=== PATIENT | female | born 1960 | race Caucasian/White ===

== ENCOUNTER → 2017-03-26 | Outpatient (CLI) | payer BC ==
--- NOTE | 2017-03-29 12:06 | MM ---
Reason for exam: screening (asymptomatic). Last mammogram was performed 1 year ago. Physical Findings: A clinical breast exam by your physician is recommended on an annual basis and results should be correlated with mammographic findings. MG Screening Mammo w CAD Bilateral CC and MLO view(s) were taken. Prior study comparison: March 18, 2016, bilateral MG screening mammo w CAD. The breast tissue is extremely dense which could obscure a lesion on mammography. Finding: There are typically benign vascular calcifications in the right breast. There is a chronic nodularity in the right breast. No significant changes in finding since March 18, 2016. ASSESSMENT: Benign, BI-RAD 2 RECOMMENDATION: Routine screening mammogram of both breasts in 1 year.
== END ==
LOC: RADMAMWWP 14:31
PROVIDERS: ATTEND Family Medicine
DX: Z12.31 Encounter for screening mammogram for malignant neoplasm of breast (principal)

== ENCOUNTER → 2017-09-17 | Outpatient (CLI) | payer BC ==
--- NOTE | 2017-09-17 09:32 | XR ---
EXAMINATION TYPE: XR lumbar spine 2 or 3V DATE OF EXAM: 09/17/2017 CLINICAL HISTORY: Low back pain for one month. TECHNIQUE: Frontal and lateral images of the lumbar spine are obtained. COMPARISON: None FINDINGS: There are 5 lumbar type vertebral bodies identified. The lumbar spine shows satisfactory alignment without evidence of acute fracture or dislocation. Vertebral body heights and disk space he ights are within normal limits. No significant spurring is seen. Some facet arthropathy lower lumbar levels is seen. There is mild vascular calcification overlying soft tissue. IMPRESSION: Facet arthropathy lower lumbar levels.
== END | disposition home or self-care (01) ==
LOC: RADXRMAIN 09:09
PROVIDERS: ATTEND Physician Assistant
DX: M46.96 Unspecified inflammatory spondylopathy, lumbar region (principal)
CPT/HCPCS: 72100

== ENCOUNTER → 2018-04-22 | Outpatient (CLI) | payer BC ==
--- NOTE | 2018-04-26 12:32 | MM ---
Reason for exam: screening (asymptomatic). Last mammogram was performed 1 year and 1 month ago. History: Family history of breast cancer in maternal grandmother at age 60. Physical Findings: A clinical breast exam by your physician is recommended on an annual basis and results should be correlated with mammographic findings. MG Screening Mammo w CAD Bilateral CC and MLO view(s) were taken. Prior study comparison: March 26, 2017, bilateral MG screening mammo w CAD. March 18, 2016, bilateral MG screening mammo w CAD. The breast tissue is extremely dense which could obscure a lesion on mammography. Benign calcifications in the right breast. There is chronic nodularity in the right breast. No significant changes when compared with prior studies. ASSESSMENT: Benign, BI-RAD 2 RECOMMENDATION: Routine screening mammogram of both breasts in 1 year.
== END | disposition home or self-care (01) ==
LOC: RADMAMWWP 11:35
PROVIDERS: ATTEND Family Medicine
DX: Z12.31 Encounter for screening mammogram for malignant neoplasm of breast (principal)
CPT/HCPCS: 77067

== ENCOUNTER → 2018-12-21 | Outpatient (CLI) | payer BC ==
--- NOTE | 2018-12-21 11:50 | CT ---
EXAMINATION TYPE: CT image guided sinus DATE OF EXAM: 12/21/2018 COMPARISON: Prior sinus CT December 31, 2015. HISTORY: Chronic sinusitis and cough per order. Sinus issues for [address] DLP: 574 mGycm. Automated Exposure Control for Dose Reduction was Utilized. TECHNIQUE: CT scan of the sinuses is performed without contrast, axial images are obtained, coronal r eformatted images are also reviewed. FINDINGS: Exam is for surgical planning and not for diagnostic purposes. There is persistent moderate mucosal thickening in the bilateral maxillary sinuses with some patchy opacity inferiorly in the lef t maxillary sinus. There and is now completely opacified right sphenoid sinus and nearly completely o pacified left sphenoid sinus. There is near complete opacification of ethmoid sinuses bilaterally wit h some aerated posterior right ethmoid sinus noted. Completely opacified right frontal sinus is seen. There is moderate mucosal thickening with dependent inferior opacity left frontal sinus noted. IMPRESSION: As above.
--- NOTE | 2018-12-21 12:18 | XR ---
EXAMINATION TYPE: XR skull limited DATE OF EXAM: 12/21/2018 COMPARISON: NONE HISTORY: Chronic congestion TECHNIQUE: 2 views of the skull are submitted FINDINGS: Bony calvarium is intact. There is mild mucosal thickening suggested in the maxillary sinus es. Frontal and sphenoid sinuses as well as the ethmoid air cells. He well-aerated. IMPRESSION: Mild chronic sinusitis suggested.
== END | disposition home or self-care (01) ==
LOC: RADCTMAIN 11:12
PROVIDERS: ATTEND Otolaryngology
DX: J32.9 Chronic sinusitis, unspecified (principal); J34.89 Other specified disorders of nose and nasal sinuses; R05 Cough
CPT/HCPCS: 70250; 70486

== ENCOUNTER 2019-02-09 07:56 | Day surgery (SDC) | payer BC ==
[2019-02-06 11:22] VITALS: BMI 26.6
[~2019-02-09 07:56] MED LIST: DEXAMETHASONE SOD PHOSPHATE 4 MG/ML 1 ML VIAL IV ONE; FAMOTIDINE 20 MG/2 ML VIAL IV ONE; LACTATED RINGERS 1,000 ML IV SCH; LIDOCAINE 1% 20 ML VIAL (10MG/ML) FOR IV START INTRADERMA PRN; MIDAZOLAM 2 MG/2 ML VIAL IV PRN; ONDANSETRON 4 MG/2 ML VIAL IVP ONE; SCOPOLAMINE 1.5MG/72HR PATCH TRANSDERM ONE
[2019-02-09] MEDS: OXYMETAZOLINE 0.05% NASL SPRAY 1 SPRAY BOTTLE NASAL ONE ×5 (08:26→08:52)
[2019-02-09] MEDS: DEXAMETHASONE SOD PHOSPHATE 10 MG/ML 1 ML VIAL IV ONE ×2 (08:52→08:53)
[2019-02-09] MEDS ORDERED: LIDOCAINE 1% INJ 10MG/ML (20 ML MDV) ONE (09:07)
[2019-02-09] MEDS ORDERED: MIDAZOLAM 2 MG/2 ML VIAL ONE (09:07)
[2019-02-09] MEDS ORDERED: ATROPINE SULFATE 0.1 MG/ML 10ML SYRINGE ONE (09:07)
[2019-02-09] MEDS ORDERED: DEXAMETHASONE SOD PHOS (MDV) 100 MG/10 ML VIAL ONE (09:07)
[2019-02-09] MEDS ORDERED: fentaNYL (PF) 50 MCG/ML 2 ML AMP ONE (09:07)
[2019-02-09] MEDS ORDERED: SUCCINYLCHOLINE CHLORIDE 100 MG/5 ML SYR IV ONE (09:07)
[2019-02-09] MEDS ORDERED: PROPOFOL 10 MG/ML 20 ML VIAL IV ONE (09:07)
[2019-02-09] MEDS ORDERED: BUPIVACAIN-EPI 0.5%-1:200,000 30 ML VIAL SQ ONE ×2 (09:08)
[2019-02-09] MEDS ORDERED: FLUORESCEIN STRIPS 1 MG STRIP MISCELLANE ONE (09:08)
[2019-02-09] MEDS ORDERED: LIDOCAINE 1%-EPI 1:100,000 20 ML VIAL SQ ONE ×2 (09:08)
[2019-02-09] MEDS ORDERED: EPINEPHrine 1 MG/ML (MDV) 30 ML VIAL IRRIGATION ONE (09:09)
[2019-02-09] MEDS ORDERED: SODIUM CHLORIDE 0.9% 1,000 ML IV ONE ×2 (10:38)
[2019-02-09] MEDS: HYDROmorphone 0.5 MG/0.5 ML SYRINGE IVP PRN ×2 (10:45→10:51)
[2019-02-09 10:50] VITALS: TEMP 97.1
--- NOTE | 2019-02-09 11:02 | P.OP ---
Date of Procedure: 02/09/19 Preoperative Diagnosis: Chronic pansinusitis with sinonasal polyposis Postoperative Diagnosis: Same Procedure(s) Performed: Image guided Bilateral functional endoscopic sinus surgery with polypectomy and placement of propel Implants: Propel drug-eluting stent, dissolvable bilaterally Anesthesia: GETA Surgeon: Karson Anthony Estimated Blood Loss (ml): 20 Pathology: other (Sinonasal) Condition: stable Disposition: PACU Indications for Procedure: This is a patient who is had chronic sinusitis and sinonasal polyposis and has failed medical therapy. CAT scan evaluation shows chronic pansinusitis with severe sinonasal polyposis. After long discussion the patient's requesting sinus surgery with polypectomy area and we've decided to place propel which is a drug-eluting stent that releases mometasone. All risks, benefits, and alternative therapies were discussed. Consent was obtained and all questions were answered. Operative Findings: Patient was found have massive sinonasal polyposis Description of Procedure: Patient was taken to the operative room and placed in the supine position. A general inhalation anesthetic was administered to the patient by mask and subsequently intubated with a cuffed endotracheal tube by the department of anesthesia with a functioning IV line in place. The patient was monitored throughout the entire case by the department of anesthesia. We utilized image guided verification for anatomic points with the use of a general [employer]. We registered this and verified this with anatomic guided points. With use of the 0 and 30 Jacques matilde scope we anesthetize the nose lateral wall and sphenopalatine ganglion with lidocaine and bupivacaine. We then with the microdebrider removed intranasal polyps bilaterally. We then opened the maxill aguila sinuses below the inferior turbinates with a Aaron and we removed polyps from the maxillary sinuses under endoscopic visualization. We open the maxillary sinuses above the inferior turbinate more widely and removed widespread polyps and diseased tissue. We did a total ethmoidectomy with removal of all ethmoid septations and polyps bilaterally. Again this was done under endoscopic visualization then we entered the sphenoid sinuses and removed diseased tissue and polyps bilaterally. We then entered the frontal sinuses we ballooned open the frontal sinuses we then entered the frontal sinuses and we remove diseased tissue and polyps from the frontal sinuses bilaterally and explore the frontal sinuses. To summarize all sinuses were open all sinuses were explored and we removed polyps and diseased tissue from all sinuses we placed propel underneath the middle turbinates bilaterally and then inserted nasal pore and xerogel to stop any bleeding. The patient tolerated this well an d follow-up will be in the office in 1 week she is not to blow her nose she is to call if any problems should arise.
[2019-02-09] MEDS ORDERED: LACTATED RINGERS 1,000 ML IV ONE (11:25)
[2019-02-09 11:31] VITALS: RESP 18
[2019-02-09 11:54] VITALS: BP 142/81; PULSE 55
== END 2019-02-09 12:20 | disposition home or self-care (01) ==
LOC: OR 07:56
PROVIDERS: ATTEND Otolaryngology
DX: J32.4 Chronic pansinusitis (principal); J33.9 Nasal polyp, unspecified; J33.8 Other polyp of sinus; J34.89 Other specified disorders of nose and nasal sinuses; I10 Essential (primary) hypertension; E78.5 Hyperlipidemia, unspecified; Z87.891 Personal history of nicotine dependence; Z79.52 Long term (current) use of systemic steroids; Z79.899 Other long term (current) drug therapy; Z97.2 Presence of dental prosthetic device (complete) (partial); J30.81 Allergic rhinitis due to animal (cat) (dog) hair and dander; J30.1 Allergic rhinitis due to pollen; J30.89 Other allergic rhinitis; Z91.013 Allergy to seafood; Z83.3 Family history of diabetes mellitus; Z80.3 Family history of malignant neoplasm of breast; Z82.0 Family history of epilepsy and other diseases of the nervous system
CPT/HCPCS: 31259; 31253; 31267; 61782; 88305; C2625; C1726; J0171; J2250; J1100 ×2; J2405; J0690; J2001; J0461; J3010; J0330; J2704; J1170

== ENCOUNTER → 2019-04-28 | Outpatient (CLI) | payer BC ==
--- NOTE | 2019-05-01 10:29 | MM ---
Reason for exam: screening (asymptomatic). Last mammogram was performed 1 year ago. History: Patient is postmenopausal. Family history of breast cancer in maternal grandmother at age 60. Physical Findings: A clinical breast exam by your physician is recommended on an annual basis and results should be correlated with mammographic findings. MG Screening Mammo w CAD Bilateral CC and MLO view(s) were taken. Prior study comparison: April 22, 2018, bilateral MG screening mammo w CAD. March 26, 2017, bilateral MG screening mammo w CAD. The breast tissue is heterogeneously dense. This may lower the sensitivity of mammography. There is no discrete abnormality. No significant changes when compared with prior studies. ASSESSMENT: Negative, BI-RAD 1 RECOMMENDATION: Routine screening mammogram of both breasts in 1 year.
== END | disposition home or self-care (01) ==
LOC: RADMAMWWP 13:09
PROVIDERS: ATTEND Family Medicine
DX: Z12.31 Encounter for screening mammogram for malignant neoplasm of breast (principal)
CPT/HCPCS: 77067

== ENCOUNTER → 2020-09-04 | Outpatient (CLI) | payer BC ==
--- NOTE | 2020-09-05 14:06 | MM ---
Reason for exam: screening (asymptomatic). Last mammogram was performed 1 year and 4 months ago. History: Patient is postmenopausal. Family history of breast cancer in maternal grandmother at age 60. Physical Findings: A clinical breast exam by your physician is recommended on an annual basis and results should be correlated with mammographic findings. MG Screening Mammo w CAD Bilateral CC and MLO view(s) were taken. Prior study comparison: April 28, 2019, bilateral MG screening mammo w CAD. April 22, 2018, bilateral MG screening mammo w CAD. The breast tissue is heterogeneously dense. This may lower the sensitivity of mammography. Chronic nodularity in the right breast. Prominent axillary nodes are unchanged. No significant changes when compared with prior studies. ASSESSMENT: Benign, BI-RAD 2 RECOMMENDATION: Routine screening mammogram of both breasts in 1 year. COLE
== END | disposition home or self-care (01) ==
LOC: RADMAMWWP 13:31
PROVIDERS: ATTEND Family Medicine
DX: Z12.31 Encounter for screening mammogram for malignant neoplasm of breast (principal)
CPT/HCPCS: 77067

== ENCOUNTER 2024-07-12 09:10 | Day surgery (SDC) | payer BC ==
[2024-07-12] MEDS: IV FLUID CONTINUATION 1,000 ML IV ONE (09:32)
[2024-07-12 09:33] VITALS: RESP 16; TEMP 97.3
[2024-07-12] MEDS: LACTATED RINGERS 1,000 ML IV SCH (09:38)
[2024-07-12] MEDS ORDERED: PROPOFOL 10 MG/ML 20 ML VIAL IV ONE (10:15)
[2024-07-12] MEDS ORDERED: LIDOCAINE 1% INJ 10MG/ML (20 ML MDV) ONE (10:15)
--- NOTE | 2024-07-12 10:27 | P.PCN ---
Date of Procedure: 07/12/24 Procedure(s) Performed: BRIEF HISTORY: Patient is a 64-year-old, pleasant, white female scheduled for an upper endoscopy for evaluation of intermittent dysphagia to solids for the last 2 to 3 months duration.. PROCEDURE PERFORMED: Esophagogastroduodenoscopy biopsy and dilation. PREOPERATIVE DIAGNOSIS: Intermittent dysphagia to solids of 2 months duration. IV sedation per anesthesia. PROCEDURE: After informed consent was obtained, the patient was brought into the endoscopy unit. IV sedation was administered by Anesthesia under continuous monitoring. Initially the Olympus GIF-140 video endoscope was inserted into the mouth. Esophagus intubated without any difficulty. It was gradually advanced into the stomach and duodenum and carefully examined. The bulb and the second part of the duodenum appeared normal. The scope at this time was withdrawn to the stomach, adequately insufflated with air, and upon careful examination, mucosa of the antrum, body, cardia and the fundus appeared normal. The scope was then withdrawn into the esophagus. Small hiatal hernia noted. The GE junction was located at 39 cm from the incisors. It was a distal esophageal Schatzki's ring identified that was dilated with 20 mm TTS balloon. The balloon years into the distal esophagus consistent with LA grade B reflux esophagitis. The rest of the esophagus appeared normal. Biopsies were done from the distal esophagus and the patient tolerated the procedure well. IMPRESSION: 1. Distal esophageal Schatzki's ring status post balloon dilation using 20 mm TTS balloon. 2. Small hiatal hernia 3/ Linear erosions in the distal esophagus consistent with LA grade B reflux esophagitis.. RECOMMENDATIONS: The findings of this examination were discussed with the patient as well as her family. She was advised to follow-up with the biopsy results. She will remain on clear liquids for 2 hours. Start on omeprazole 20 mg daily and follow antireflux measures. Follow-up in office in 2 weeks.
[2024-07-12 10:57] VITALS: BP 124/73; PULSE 65
== END 2024-07-12 11:04 | disposition home or self-care (01) ==
LOC: ORWHC2ENDO 09:10
PROVIDERS: ATTEND Internal Medicine Gastroenterology
DX: K20.90 Esophagitis, unspecified without bleeding (principal); K44.9 Diaphragmatic hernia without obstruction or gangrene; K22.2 Esophageal obstruction; I10 Essential (primary) hypertension; E78.5 Hyperlipidemia, unspecified; M19.90 Unspecified osteoarthritis, unspecified site; Z87.891 Personal history of nicotine dependence; Z91.048 Other nonmedicinal substance allergy status; Z79.899 Other long term (current) drug therapy; Z88.8 Allergy status to other drugs, medicaments and biological substances
CPT/HCPCS: 88305; 43239; 43249; J2003; J2704; C1726; 43244